=== PATIENT | female | born 1985 | race African-American/Black ===

== ENCOUNTER 2021-09-25 17:18 | Emergency (ER) | payer BC, OTHER ==
[2021-09-25 17:36] VITALS: BP 128/81; PULSE 89; TEMP 98.1; BMI 29.9
[2021-09-25] MEDS ORDERED: DIPHTH,PERTUSS(ACELL),TET 0.5 ML DISP.SYRIN IM ONE ×2 (18:10→18:23)
== END 2021-09-25 19:23 | disposition home or self-care (01) ==
LOC: JER 17:18 → JERFT 17:18
PROC: 0HQMXZZ Repair Right Foot Skin, External Approach (ICD-10-PCS; principal; 2021-09-25)
PROC: 3E0234Z Introduction of Serum, Toxoid and Vaccine into Muscle, Percutaneous Approach (ICD-10-PCS; 2021-09-25)
DX: S91.114A Laceration without foreign body of right lesser toe(s) without damage to nail, initial encounter (principal); Y28.9XXA Contact with unspecified sharp object, undetermined intent, initial encounter
CPT/HCPCS: 90715; 99284-25

== ENCOUNTER 2021-10-02 13:36 | Emergency (ER) | payer BC, OTHER ==
[2021-10-02 13:44] VITALS: BP 124/82; PULSE 103; TEMP 98.1; BMI 31.2
== END 2021-10-02 14:54 | disposition home or self-care (01) ==
LOC: JERFT 13:36
DX: Z48.02 Encounter for removal of sutures (principal)
CPT/HCPCS: 99281-25

== ENCOUNTER 2021-10-06 20:26 | Emergency (ER) | payer BC ==
[2021-10-06 20:50] VITALS: BP 115/74; PULSE 84; TEMP 98.2; BMI 29.9
[2021-10-06] MEDS ORDERED: CEPHALEXIN MONOHYDRATE 500 MG CAPSULE (UD) PO ONE (21:42)
[2021-10-06] MEDS ORDERED: CEPHALEXIN MONOHYDRATE 500 MG CAPSULE (UD) ONE (21:49)
== END 2021-10-06 22:26 | disposition home or self-care (01) ==
LOC: JERFT 20:26
DX: S91.114A Laceration without foreign body of right lesser toe(s) without damage to nail, initial encounter (principal); L08.89 Other specified local infections of the skin and subcutaneous tissue; Y99.9 Unspecified external cause status; Z48.02 Encounter for removal of sutures
CPT/HCPCS: 73630-TC-RT-FY; 87070; 87186; 87205; 99283-25

== ENCOUNTER 2021-10-09 12:00 | Emergency (ER) | payer BC ==
[2021-10-09 12:22] VITALS: BP 120/77; PULSE 86; TEMP 97.9; BMI 29.9
== END 2021-10-09 14:21 | disposition home or self-care (01) ==
LOC: PCPHSEMD 12:00 → JER 12:00 → PCPHSEMD 14:21
DX: S61.216A Laceration without foreign body of right little finger without damage to nail, initial encounter (principal); Y99.9 Unspecified external cause status; Z48.00 Encounter for change or removal of nonsurgical wound dressing
CPT/HCPCS: 99281-25